=== PATIENT | male | born 1970 | race African-American/Black ===

== ENCOUNTER 2018-07-18 06:11 | Inpatient (IN) | payer MEDICAID ==
[~2018-07-18] VITALS: Ht 177.8 cm; Wt 107.5 kg
[2018-07-18] MEDS ORDERED: SODIUM CHLORIDE 0.9% 1000ML BAG (SEPSIS BOLUS) IV ONE (07:00)
[2018-07-18] MEDS ORDERED: VANCOMYCIN 1 G PREMIX 200 ML IV ONE (07:00)
[2018-07-18] MEDS ORDERED: PIPERACILLIN/TAZ 3.375G PREMIX 50 ML IV ONE (07:00)
[2018-07-18] MEDS ORDERED: NALOXONE HCL 1 MG/ML 2ML VIAL IV ONE (07:00)
[2018-07-18 07:36] LABS: BASOPHILS % 0.7 % (0.0-2.0); EOSINOPHILS % 1.6 % (0.0-5.0); HEMATOCRIT. 44.1 % (42.0-52.0); HEMOGLOBIN. 14.6 g/dL (14.0-18.0); LYMPHOCYTES % 15.6 % (20.0-50.0); MEAN CORPUSCULAR HEMOGLOBIN 27.2 pg (28.0-32.0); MEAN CORPUSCULAR VOLUME 81.7 fL (80.0-94.0); MEAN PLATELET VOLUME 7.1 fl (7.4-10.4); NEUTROPHILS % 72.1 % (40.0-76.0); PLATELET 353 x1000/uL (130-400); RED BLOOD CELL COUNT 5.39 mill/uL (4.7-6.1); RED CELL DISTRIBUTION WIDTH 13.4 % (11.6-14.6)
[2018-07-18 07:41] LABS: CHLORIDE 106 mEq/L (98-107)
[2018-07-18 07:43] LABS: INR 0.9; PROTHROMBIN TIME 9.3 sec (9.1-11.1)
[2018-07-18 10:21] LABS: CLARITY URINE CLEAR (CLEAR); COLOR URINE YELLOW (YELLOW); KETONES URINE NEGATIVE (NEGATIVE); LEUKOCYTE ESTERASE URINE TRACE (NEGATIVE); NITRITE URINE NEGATIVE (NEGATIVE); OCCULT BLOOD URINE NEGATIVE (NEGATIVE); PH URINE 5.5 (4.5-8.0); PROTEIN URINE NEGATIVE (NEGATIVE); SPECIFIC GRAVITY URINE 1.022 (1.005-1.030); UROBILINOGEN URINE 0.2 E.U./dL (0.2-1.0)
[2018-07-18 10:56] LABS: *BENZODIAZEPINES SCREEN URINE NEGATIVE (NEGATIVE); *COCAINE SCREEN URINE NEGATIVE (NEGATIVE); METHADONE URINE SCREEN NEGATIVE (NEGATIVE)
[2018-07-18 10:57] LABS: *AMPHETAMINES SCREEN URINE PRESUMTIVE POSITIVE (NEGATIVE); *BARBITURATES SCREEN URINE NEGATIVE (NEGATIVE); CANNABINOID URINE SCREEN NEGATIVE (NEGATIVE); PHENCYCLIDINE URINE SCREEN NEGATIVE (NEGATIVE)
[2018-07-18 11:03] LABS: OPIATES URINE SCREEN NEGATIVE (NEGATIVE)
[2018-07-18] MEDS ORDERED: IOHEXOL-300 100 ML BOTTLE ONE (11:46)
[2018-07-18] MEDS ORDERED: ONDANSETRON HCL 4MG/2ML INJ IV PRN (13:30)
[2018-07-18] MEDS ORDERED: ACETAMINOPHEN 325MG TABLET PO PRN (13:30)
[2018-07-18] MEDS ORDERED: CLONIDINE 0.1MG TABLET PO PRN (15:45)
[2018-07-18 16:00] VITALS: BP 125/56
[2018-07-18] MEDS ORDERED: CEFAZOLIN 1000MG PREMIX 50 ML IV SCH (18:00)
[2018-07-18 18:45] VITALS: BP 125/54
[2018-07-18 20:00] VITALS: BP 129/84
[2018-07-18] MEDS: AMPICILLIN SOD/SULBACTAM NA 3 G in SODIUM CHLORIDE 0.9% 100 ML IV SCH (20:28)
[2018-07-18] MEDS: ENOXAPARIN 30MG/0.3ML SYR SUBCUT SCH (20:29)
[2018-07-19] VITALS: BP 114/76
[2018-07-19] MEDS: AMPICILLIN SOD/SULBACTAM NA 3 G in SODIUM CHLORIDE 0.9% 100 ML IV SCH ×3 (01:32→14:03)
[2018-07-19 04:00] VITALS: BP_SYST 127; BP_SYST 150; BP_DIAS 103; BP_DIAS 86
[2018-07-19 07:02] LABS: BASOPHILS % 0.7 % (0.0-2.0); EOSINOPHILS % 2.2 % (0.0-5.0); HEMATOCRIT. 43.8 % (42.0-52.0); HEMOGLOBIN. 14.5 g/dL (14.0-18.0); LYMPHOCYTES % 20.8 % (20.0-50.0); MEAN CORPUSCULAR HEMOGLOBIN 27.3 pg (28.0-32.0); MEAN CORPUSCULAR VOLUME 82.5 fL (80.0-94.0); MEAN PLATELET VOLUME 7.1 fl (7.4-10.4); NEUTROPHILS % 66.3 % (40.0-76.0); PLATELET 359 x1000/uL (130-400); RED BLOOD CELL COUNT 5.31 mill/uL (4.7-6.1); RED CELL DISTRIBUTION WIDTH 13.3 % (11.6-14.6)
[2018-07-19 07:07] LABS: CHLORIDE 108 mEq/L (98-107)
[2018-07-19 08:00] VITALS: BP 109/57
[2018-07-19] MEDS ORDERED: ASPIRIN 81MG TABLET PO SCH (09:00)
[2018-07-19] MEDS: ENOXAPARIN 30MG/0.3ML SYR SUBCUT SCH (10:17)
[2018-07-19 12:00] VITALS: BP 128/62
== END 2018-07-19 14:45 | disposition left against medical advice (07) | DRG 383 ==
LOC: ER 07:27 → ENRESERV 10:55 → CANRESERV 10:55 → EDBEDREQ 11:54 → EDBEDREQTM 11:54 → EDBEDREQSVC 12:43 → ENRESERV 13:14 → 5WST 13:22 → EDBEDREQ 13:53
PROVIDERS: ADMIT Internal Medicine; ATTEND Internal Medicine
DX: L03.211 Cellulitis of face (principal); G93.41 Metabolic encephalopathy; E44.1 Mild protein-calorie malnutrition; J32.0 Chronic maxillary sinusitis; E66.9 Obesity, unspecified; Z53.21 Procedure and treatment not carried out due to patient leaving prior to being seen by health care provider; F15.10 Other stimulant abuse, uncomplicated; F17.200 Nicotine dependence, unspecified, uncomplicated; Z71.6 Tobacco abuse counseling; Z68.34 Body mass index [BMI] 34.0-34.9, adult
CPT/HCPCS: 36415; 70487; 71045; 80048; 80061; 80305; 82140; 82962; 83605; 84145; 84443; 84484; 93005; 96365; 96366; 96368; 96375; 97162; 97166; 99285; 99406; G0482; J0295; J0690; J1650; J2310; J2543; J3370; J7030; J7040; J7050; Q9967; A4315

== ENCOUNTER 2023-05-07 05:31 | Emergency (ER) | payer MEDICAID, OTHER ==
[~2023-05-07] VITALS: Ht 170.2 cm; Wt 87.0 kg
[~2023-05-07 05:31] MED LIST: AMOX-424 MT; SULF1TAB48 MT
[2023-05-07 05:32] VITALS: O2SAT 99
[2023-05-07] MEDS ORDERED: TETANUS, DIPHTHERIA, PERTUSSIS VAC/PF 0.5ML (>10YR OLD) IM ONE (06:45)
[2023-05-07] MEDS ORDERED: LIDOCAINE HCL/EPINEPHRINE 1%-EPI 1:100,000 20 ML VIAL INFIL ONE (06:45)
[2023-05-07] MEDS ORDERED: KETOROLAC 60MG/2ML VIAL IM ONE (08:30)
[2023-05-07] MEDS ORDERED: ACETAMINOPHEN 325MG TABLET PO ONE (08:30)
[2023-05-07] MEDS ORDERED: CEPH500C2 MT (09:40)
[2023-05-07] MEDS ORDERED: LIDO1ADH23 TP (09:40)
[2023-05-07] MEDS ORDERED: TOPUD PO (09:40)
[2023-05-07] MEDS ORDERED: SULF1TAB48 MT (09:40)
[2023-05-07] MEDS ORDERED: IBUP-2028 MT (09:40)
[2023-05-07 10:58] VITALS: BP 134/89; PULSE 85; RESP 18; TEMP 98.1
== END 2023-05-07 11:35 | disposition home or self-care (01) ==
LOC: ER 05:31
DX: S41.111A Laceration without foreign body of right upper arm, initial encounter (principal); M16.12 Unilateral primary osteoarthritis, left hip; X99.8XXA Assault by other sharp object, initial encounter; Y93.89 Activity, other specified; Y92.89 Other specified places as the place of occurrence of the external cause; Y99.8 Other external cause status
CPT/HCPCS: 73502; 90715; 12002; 90471; 96372; 99284; J1885; J3490; Z7610 ×4

== ENCOUNTER 2023-12-19 11:03 | Emergency (ER) | payer OTHER ==
[~2023-12-19] VITALS: Ht 172.7 cm; Wt 104.0 kg
[~2023-12-19 11:03] MED LIST changes: +CEPH500C2 MT; +IBUP-2028 MT; +LIDO1ADH23 TP; +TOPUD PO
[2023-12-19 11:04] VITALS: O2SAT 97
[2023-12-19 12:08] LABS: BASOPHILS % 0.7 % (0.0-2.0); HEMATOCRIT. 39.6 % (42.0-52.0); HEMOGLOBIN. 12.8 g/dL (14.0-18.0); LYMPHOCYTES % 15.7 % (20.0-50.0); MEAN CORPUSCULAR HEMOGLOBIN 26.1 pg (28.0-32.0); MEAN CORPUSCULAR HGB CONC 32.3 g/dL (31.0-37.0); MEAN CORPUSCULAR VOLUME 80.7 fL (80.0-94.0); MEAN PLATELET VOLUME 6.9 fl (7.4-10.4); MONOCYTES % 12.7 % (2.0-8.0); NEUTROPHILS % 69.9 % (40.0-76.0); PLATELET 576 x1000/uL (130-400); RED BLOOD CELL COUNT 4.91 mill/uL (4.7-6.1); RED CELL DISTRIBUTION WIDTH 14.2 % (11.6-14.6); WHITE BLOOD COUNT 10.6 x1000/uL (4.5-11.0)
[2023-12-19 12:10] LABS: CHLORIDE 108 mEq/L (98-107); POTASSIUM 4.1 mEq/L (3.5-5.1); SODIUM 139 mEq/L (136-145)
[2023-12-19 12:11] LABS: CALCIUM 9.3 mg/dL (8.7-10.4); CARBON DIOXIDE 25 mEq/L (21-32)
[2023-12-19 12:16] LABS: CREATININE 0.8 mg/dL (0.6-1.3); GLUCOSE 95 mg/dL (70-105); UREA NITROGEN BLOOD 14 mg/dL (9-23)
[2023-12-19 12:18] LABS: ALANINE AMINOTRANSFERASE 19 IU/L (10-49); ALBUMIN 3.6 g/dL (3.2-4.8); ASPARTATE AMINOTRANSFERASE 22 IU/L (<34); BILIRUBIN TOTAL 0.2 mg/dL (0.1-1.0); PROTEIN TOTAL 7.2 g/dL (6.0-8.3)
[2023-12-19 12:49] LABS: INR 0.9; PROTHROMBIN TIME 10.6 sec (9.6-11.0)
[2023-12-19] MEDS: CEFTRIAXONE 1GM/50ML 50 ML IV ONE (13:01)
[2023-12-19 13:31] LABS: TROPONIN I HIGH SENSITIVITY 57 ng/L (3.0-53)
[2023-12-19] MEDS: VANCOMYCIN 1.5GM/250ML IV NR (13:51)
[2023-12-19] MEDS: FUROSEMIDE 40MG/4ML VIAL IVP ONE (13:59)
[2023-12-19 15:41] VITALS: BP 132/60; PULSE 81; RESP 19; TEMP 97.9
[2023-12-20] MEDS ORDERED: VANCOMYCIN 1.25GM PMX (XELLIA) 250 ML IV SCH (01:00)
== END 2023-12-19 15:50 | disposition short-term general hospital (02) ==
LOC: ER 12:14 → CANBEDREQ 15:14 → ER 15:50
DX: I21.4 Non-ST elevation (NSTEMI) myocardial infarction (principal); I50.9 Heart failure, unspecified; L03.115 Cellulitis of right lower limb
CPT/HCPCS: 80053; 83880; 85025; 85610; 84484; 36415; 93971; 71045; 93005; 96367; 96365; 96375; 99291; J3370; J0696; J1940; Z7610 ×2

== ENCOUNTER 2024-08-18 19:32 | Emergency (ER) | payer OTHER ==
[~2024-08-18] VITALS: Ht 177.8 cm; Wt 85.0 kg
[2024-08-18 19:48] VITALS: BP 116/93; PULSE 98; RESP 16; TEMP 99.1; O2SAT 99
[2024-08-18] MEDS ORDERED: IBUP-2029 MT (23:48)
[2024-08-19 01:25] LABS: HEMATOCRIT 40.7 % (42.0-52.0); HEMOGLOBIN 13.3 g/dL (14.0-18.0); MEAN CORPUSCULAR HEMOGLOBIN 26.4 pg (28.0-32.0); MEAN CORPUSCULAR HGB CONC 32.8 g/dL (31.0-37.0); MEAN CORPUSCULAR VOLUME 80.4 fL (80.0-94.0); PLATELET 353 x1000/uL (130-400); RED BLOOD CELL COUNT 5.06 mill/uL (4.7-6.1); RED CELL DISTRIBUTION WIDTH 14.5 % (11.6-14.6); WHITE BLOOD COUNT 8.5 x1000/uL (4.5-11.0)
[2024-08-19 02:04] LABS: CHLORIDE 105 mEq/L (98-107); POTASSIUM 3.3 mEq/L (3.5-5.1); SODIUM 140 mEq/L (136-145)
[2024-08-19 02:05] LABS: CALCIUM 8.7 mg/dL (8.7-10.4); CARBON DIOXIDE 24 mEq/L (21-32)
[2024-08-19 02:10] LABS: CREATININE 0.9 mg/dL (0.6-1.3); GLUCOSE 96 mg/dL (70-105); UREA NITROGEN BLOOD 13 mg/dL (9-23)
[2024-08-19] MEDS ORDERED: POTASSIUM CHLORIDE 20MEQ TABLET SR PO ONE (04:45)
[2024-08-19 05:54] LABS: *AMPHETAMINES SCREEN URINE PRESUMPTIVE POSITIVE (NEGATIVE); *BARBITURATES SCREEN URINE NEGATIVE (NEGATIVE); *BENZODIAZEPINES SCREEN URINE NEGATIVE (NEGATIVE); *COCAINE SCREEN URINE NEGATIVE (NEGATIVE); CANNABINOID URINE SCREEN NEGATIVE (NEGATIVE); ECSTASY MDMA SCREEN URINE NEGATIVE (NEGATIVE); METHADONE URINE SCREEN NEGATIVE (NEGATIVE); OPIATES URINE SCREEN NEGATIVE (NEGATIVE); PHENCYCLIDINE URINE SCREEN NEGATIVE (NEGATIVE)
== END 2024-08-19 14:43 | disposition home or self-care (01) ==
LOC: ER 19:32
DX: M79.18 Myalgia, other site (principal); F17.210 Nicotine dependence, cigarettes, uncomplicated; I50.9 Heart failure, unspecified
CPT/HCPCS: 36415; 71045; 80048; 80305; 80320; 83880; 85027; 99284; G0480